=== PATIENT | male | born 1965 | race Caucasian/White ===

== ENCOUNTER 2017-02-13 15:38 | Inpatient (IN) | payer BC ==
--- NOTE | ~2017-02-13 | DS ---
Discharge Summary [facility] [address] [place]. [address] NAME: MARCUS DOMINGUEZ SR. : 67 STATUS : DIS IN PAT#: [id number] AGE: 51 ADM/REG DATE : 02/13/17 MR#: [id number] REPORT SERV DATE: 03/01/17 DICTATED BY: NELSON MIRELES JR. DATE: 03/01/17 REPORT STATUS : Draft TRANSCRIBED BY: FARZANEH DATE: 03/01/17 Data Collection from hospitalization DISCHARGE DIAGNOSES: 1. Pneumothorax. 2. Hypertension. 3. Chronic obstructive pulmonary disease. 4. Tobacco abuse. 5. Gastroesophageal reflux disease. 6. Neuropathy of the left face. CONSULTATIONS: None. PROCEDURES PERFORMED: Bronchoscopy, right thoracoscopy with mechanical pleurodesis (Betadine), intercostal nerve block, 02/14/2017. MEDICATIONS: Tegretol 100 mg twice a day, Neurontin 300 mg three times a day, HydroDIURIL 12.5 mg daily, Cozaar 100 mg daily, Percocet 5/325 one to two tablets every four hours as needed. CONDITION AT DISCHARGE: Stable. DISPOSITION: The patient was discharged home on a regular diet with activities as instructed. He would follow up with me, 03/12/2017. HOSPITAL COURSE: This is a 51-year-old man, who presented to the [facility] with complaints of shortness of breath and chest pain, which started Sunday prior to this admission. He stated that his shortness of breath had worsened and he presented to the emergency room. He has a history of COPD and tobacco use as well as two previous spontaneous pneumothoraces on the right side. One of the pneumothoraces was treated with a chest tube and attempted bedside pleurodesis with failure. On further evaluation in the hospital, he was found to have 80% pneumothorax with atelectasis on the right base. A large bore chest tube was inserted with near-complete re-expansion. A CT scan of the chest had been performed, which showed bilateral diffuse bolus emphysema. We were asked to transfer him to consider surgical pleurodesis. He currently denied any significant breathing problems, but did complain of mild pain and tenderness in the right chest wall. He was admitted to the hospital for further evaluation and treatment. Upon admission, white count was 13.3. Treatment options were discussed and it was elected to proceed with surgical intervention. The following day, his pain was controlled. He was doing well. He was taken to the operating room, where he underwent the above-mentioned procedure. He tolerated this well and there were no complications. On postop day one, he was afebrile. Urine output was adequate. White count was 15.5. Chest tube remained in place. On the , he continued to do well. There had been no acute events overnight. He denied pain other than the chest tube site with movements. He said he had been mobile and had been ambulating and using the incentive spirometer. On 02/17/2017, he had no new complaints. The epidural catheter was removed and the tip was Discharge Summary [address] [address] NAME: MARCUS DOMINGUEZ . : 67 STATUS : DIS IN PAT#: [id number] AGE: 51 ADM/REG DATE : 02/13/17 MR#: [id number] REPORT SERV DATE: 03/01/17 DICTATED BY: NELSON MIRELES JR. DATE: 03/01/17 REPORT STATUS : Draft TRANSCRIBED BY: FARZANEH DATE: 03/01/17 intact. Over the next couple of days, he continued to progress. Discharge planning was performed. On 02/19/2017, his lungs were clear. Chest tube was discontinued. Discharge instructions were given. Due to his improved and stable condition, he was discharged home with the above-stated instructions. Information collected by: Mandie Robison I submit the above information as my discharge summary. BEATRIZ/FARZANEH Nelson Mireles Jr., M.D. / [id number] CC: Sandy Diaz Jr., D.O.
--- NOTE | ~2017-02-13 | OP ---
Record Of Operation [facility] [address] [place]. [address] NAME: MARCUS DOMINGUEZ SR : 67 STATUS : ADM IN [facility]#: [id number] AGE: 51 ADM/REG DATE : 02/13/17 MR#: [id number] REPORT SERV DATE: 02/15/17 DICTATED BY: NELSON MIRELES JR. DATE: 02/14/17 REPORT STATUS : Draft TRANSCRIBED BY: FARZANEH DATE: 02/14/17 DATE OF PROCEDURE: 02/14/2017 PREOPERATIVE DIAGNOSIS: Spontaneous secondary pneumothorax, status post failed previous pleurodesis, severe bullous emphysematous disease, hypertension, persistent tobacco abuse, and gastroesophageal reflux disease. POSTOPERATIVE DIAGNOSIS: Spontaneous secondary pneumothorax, status post failed previous pleurodesis, severe bullous emphysematous disease, hypertension, persistent tobacco abuse, and gastroesophageal reflux disease. NAME OF OPERATION: Bronchoscopy, right thoracoscopy with mechanical pleurodesis(Betadine), intercostal nerve block. SURGEON: Nelson Mireles M.D. DIRECTOR OF NURSES REGISTRY: Aleksandar Titus. RESIDENT SURGEON: Juaquin Mendez MD ANESTHESIA: General endotracheal. FINDINGS: The patient noted to have severe bullous lesions in the upper third of the right upper lobe. There was also other diffuse lesions in more of a homogeneous pattern than appear heterogeneous pattern. Towards the posterior aspect of the lung in the mediastinal hilar region, there were lots of bullous lesions coming off the lower lobe. We insufflated the lung and placed saline in chest cavity and could not identify an active air leak or alveolar pleural fistula. It was felt there was no way to estimate which one of the bullous lesions were causing the problems but to start trying to randomly takeoff bullous lesions I thought was not parekh. Removing the upper portion of the right upper lobe in the lung volume reduction strategy would only increase risk for postoperative problems, and given the diffuse nature of the disease, it was not indicated. Also given his current smoking status. We elected to limit it to just a chemical pleurodesis. No biopsies were taken. On bronchoscopy, there is no endobronchial lesions or contraindications proceeding on with surgery. Mucous secretions were evacuated as expected. DETAILS OF OPERATION: After adequate general anesthesia, the patient was intubated. Bronchoscopy was performed noting no endobronchial lesions or contraindications proceeding on with surgery. A left-sided double-lumen endotracheal tube was then placed. The right lung was medially isolated. The patient was then positioned in the left lateral decubitus position where the existing right chest tube was removed. The chest was prepped and draped in routine sterile fashion. A small incision was made overlying the lower intercostal space. Through a single incision site, the above findings were noted. There were some old clot and fibrinous debris from likely the previous chest tube in the chest pleural space. This was removed. The chest was explored noting no obvious ruptured bleb. There was extensive bullous lesions on all three lobes, but primarily the right upper lobe apical Record Of Operation [facility] [address] [place]. [address] NAME: MARCUS DOMINGUEZ SR : 67 STATUS : ADM IN [facility]#: [id number] AGE: 51 ADM/REG DATE : 02/13/17 MR#: [id number] REPORT SERV DATE: 02/15/17 DICTATED BY: NELSON MIRELES JR. DATE: 02/14/17 REPORT STATUS : Draft TRANSCRIBED BY: FARZANEH DATE: 02/14/17 area. Saline was instilled in the chest cavity with the lung was reinflated noting no obvious air leak. We could not smell any anesthetic gases. There were no bubbles performed. After extensive exploration, it was felt a chemical pleurodesis is indicated. We then placed Betadine in the chest cavity. This was 20 mL of 10% Betadine mixed with 80 mL of normal saline. A 32-Italian chest tube was placed. An intercostal block was performed. The single trocar site was closed with running Vicryl sutures. The skin was closed with running monofilament suture. A Dermabond dressing was applied. The old chest tube incision site from the previous tube thoracostomy was then irrigated and debrided. It was packed with iodoform gauze. It was closed with simple Prolene sutures. Sterile dressing was applied. The procedure was terminated at this point. The patient returned back to recovery room in stable condition. BUFFY/FARZANEH Nelson Mireles Jr., M.D. / [id number] CC: Nelson Mireles Jr., M.D. Froylan Barajas MD
--- NOTE | ~2017-02-13 | HP ---
History And Physical [place] [id number] [facility] [place]. [address] NAME: MARCUS DOMINGUEZ SR : 67 STATUS : ADM IN [facility]#: [id number] AGE: 51 ADM/REG DATE : 02/13/17 MR#: [id number] REPORT SERV DATE: 02/14/17 DICTATED BY: NELSON MIRELES JR. DATE: 02/14/17 REPORT STATUS : Draft TRANSCRIBED BY: MODTheo DATE: 02/14/17 DATE OF ADMISSION: 02/13/2017 REASON FOR ADMISSION: Recurrent right pneumothorax. REFERRING PHYSICIAN: Dr. Tavarez, construction project coordinator in [place]. BRIEF HISTORY: This is a 51-year-old white male who presented to [facility] with complaints of shortness of breath and chest pain, which started this past Sunday. He states his shortness of breath worsened, so he presented to the emergency room. He has a history of COPD and tobacco use as well as two previous spontaneous pneumothoraces on his right side. One of the pneumothoraces was treated with a chest tube and attempted bedside pleurodesis with failure. Upon further evaluation in the hospital, he was noted to have an 80% pneumothorax with atelectasis of the right base. A large bore chest tube was inserted with near complete re-expansion. CT scan of the chest was then performed which showed bilateral diffuse bullous emphysema. We were asked to transfer him to consider surgical pleurodesis. He currently denies any significant breathing problems, but does complain of some mild pain and tenderness on his right chest wall. MEDICAL HISTORY: Hypertension, COPD, tobacco abuse, gastroesophageal reflux disease, two prior spontaneous pneumothoraces on the right with a chest tube placement and failed pleurodesis, and neuropathy of his left face. PAST SURGICAL HISTORY: Includes excision of left oral cancer and left neck dissection. Appendectomy, tonsillectomy. HOME MEDICATIONS: Include carbamazepine 100 mg p.o. twice daily, gabapentin 300 mg p.o. three times daily, hydrochlorothiazide 12.5 mg p.o. daily, losartan 100 mg two tablets daily. ALLERGIES: NONE. SOCIAL HISTORY: The patient smoked one pack per day for approximately 25 years. He denies any alcohol or drug use. He is with children and lives in [place], [place]. He works for [employer]. FAMILY HISTORY: Significant for his mother dying at age 56 of a myocardial infarction. His father secondary to cirrhosis of the liver at age 63. He has multiple siblings, but does not know all their history. One of his sisters does have diabetes as well as a fatty liver. REVIEW OF SYSTEMS: Significant for shortness of breath, chest wall discomfort, left facial pain. Complete 12- point review of systems done, all other systems are negative except for the above-mentioned pertinent positives in the history of present illness. History And Physical [address] [address] NAME: MARCUS DOMINGUEZ SR : 67 STATUS : ADM IN [facility]#: [id number] AGE: 51 ADM/REG DATE : 02/13/17 MR#: [id number] REPORT SERV DATE: 02/14/17 DICTATED BY: NELSON MIRELES JR. DATE: 02/14/17 REPORT STATUS : Draft TRANSCRIBED BY: FARZANEH DATE: 02/14/17 PHYSICAL EXAMINATION: GENERAL: A 51-year-old white male, alert, in no acute distress, appearing his stated age. CONSTITUTIONAL: Afebrile. Blood pressure with systolic in the 130s to 140s, oxygen saturation 95%-96% on 2 L nasal cannula, heart rate in the 80s and normal sinus rhythm, weight 68 kg. HEAD, EARS, EYES, NOSE, AND THROAT: Normocephalic, atraumatic. Pupils equal, round and reactive to light. Ears, nose and throat, no drainage, lesions, or exudates noted. NECK: Supple. No lymphadenopathy, JVD, or bruits. Trachea midline. No obvious goiter. CHEST: With symmetrical bilateral movement. No chest wall deformities noted. There is an indwelling right large bore chest tube. CARDIOVASCULAR: Regular rate and rhythm. S1, S2. No gallop, murmur, or rub. RESPIRATORY: Lungs decreased in the right base, otherwise clear. No use of accessory muscles noted. GASTROINTESTINAL: Abdomen is soft, nontender, nondistended. Positive bowel sounds in all four quadrants. No hepatosplenomegaly noted. There is no abdominal aortic bruits or masses noted. : The patient voids without difficulty, otherwise deferred. MUSCULOSKELETAL: Without obvious kyphosis or scoliosis noted. There is normal range of motion all four extremities. No significant bony abnormalities noted. NEURO: All 12 cranial nerves intact. No focal neurologic deficits noted. The patient is alert and oriented x3. SKIN: Warm and dry. No breakdown or lesions noted. Normal turgor. EXTREMITIES: Without clubbing, cyanosis, or edema. 2+ pulses bilaterally. PSYCH: Normal mood and affect, and pleasant. Answers all questions appropriately. HEMATOLOGIC/LYMPHATIC: Without any obvious petechiae or ecchymosis noted. There is no supraclavicular, cervical, or axillary lymphadenopathy noted. DATA: Labs dated 02/13/2017, sodium 136, potassium 3.9, BUN 9, creatinine 0.68, glucose 90, alkaline phosphatase 45, AST 13, total bilirubin 1. White blood count 13.3, hemoglobin 15.7, hematocrit 46.6, platelet 207. HIV antibody is nonreactive. CT of the chest dated 02/12/2017 showing extensive emphysematous changes bilaterally with multiple bullous lesions. There is a right basilar chest tube that extends to the medial right lung base. There is right lower lobe consolidation with a small residual right pneumothorax noted. PROBLEM LIST: 1. Recurrent right-sided pneumothorax with previous failed pleurodesis attempt. 2. Bullous emphysema. 3. Chronic obstructive pulmonary disease. 4. Hypertension. 5. Gastroesophageal reflux disease. 6. Left facial neuropathy. 7. Ongoing tobacco abuse. IMPRESSION AND PLAN: A 51-year-old white male with severe bilateral bullous emphysema and chronic obstructive pulmonary disease with ongoing tobacco abuse. He has had two previous History And Physical [address] [place]. [address] NAME: MARCUS DOMINGUEZ SR : 67 STATUS : ADM IN [facility]#: [id number] AGE: 51 ADM/REG DATE : 02/13/17 MR#: [id number] REPORT SERV DATE: 02/14/17 DICTATED BY: NELSON MIRELES JR. DATE: 02/14/17 REPORT STATUS : Draft TRANSCRIBED BY: MODL DATE: 02/14/17 right-sided pneumothoraces, one which was treated with chest tube and attempted bedside pleurodesis with failure. He presented to the emergency room again with a third pneumothorax. I think given his significant bullous disease, it is unreasonable to proceed on with thoracoscopy and surgical pleurodesis. We would resect any obvious bullous lesions at the time of surgery. These are diffuse throughout both lungs and certainly could not remove all of them. I discussed with him the rationale for surgery as well as the risk and expected benefits. He is willing to proceed. He is also well aware that there is a 20%-30% chance that this would happen on the other side in the future and require pleurodesis as well. I also discussed with him at length for greater than five minutes tobacco cessation and multiple options available for this. He is currently on nicotine patches. We will also do a genotyping for alpha antitrypsin disorder and if this were to be positive, then do a full serum panel. We will leave him n.p.o. after midnight with plans for surgery tomorrow. DICTATED BY: NEREYDA Whelan/FARZANEH Nelson Mireles Jr., M.D. / [id number] CC: Sandy Diaz Jr., LEE
[~2017-02-13 15:38] MED LIST: ACET500CAP PO
[2017-02-13] MEDS ORDERED: NEUR300 PO (17:12)
[2017-02-13] MEDS ORDERED: TEG200 PO (17:12)
[2017-02-13] MEDS ORDERED: HCTZ12.5 PO (17:12)
[2017-02-13] MEDS ORDERED: COZAAR100 MG PO (17:13)
[2017-02-13 21:07] LABS: ASCORBIC ACID (UR NOT ORDER) NEG (NEG); BILIRUBIN, URINE NEGATIVE (NEG); KETONE, URINE NEGATIVE (NEG); LEUKOCYTE ESTERASE(NOT OR TRACE (NEG); WBC (NOT ORDERED) (RFLEX) 3 (0-5)
[2017-02-14 04:49] LABS: BASOPHILS 0.5 %; BASOPHILS ABSOLUTE 0.05 10/3/uL (0.0-0.16); EOSINOPHILS 2.7 %; EOSINOPHILS ABSOLUTE 0.28 10/3/uL (0.0-0.53); HEMATOCRIT 46.2 % (40.0-51.0); HEMOGLOBIN 16.1 g/dL (13.6-17.8); IMMATURE GRANULOCYTES 0.3 %; IMMATURE GRANULOCYTES ABSOLUTE 0.03 10/3/uL (0.0-0.11); LYMPHOCYTES 17.7 %; LYMPHOCYTES ABSOLUTE 1.83 10/3/uL (0.67-4.30); MEAN CORPUS HGB CONC 34.8 g/dL (32.0-36.0); MEAN CORPUSCULAR HEMOGLOB 32.6 pg (26.0-34.0); MEAN CORPUSCULAR VOLUME 93.5 fL (80-100); MEAN PLATELET VOLUME 9.5 fL (9.2-13.0); MONOCYTES 8.8 %; MONOCYTES ABSOLUTE 0.91 10/3/uL (0.21-1.20); NEUTROPHILS ABSOLUTE 7.26 10/3/uL (2.02-8.40); PLATELET COUNT 213 10/3/uL (150-400); RBC DISTRIBUTION WIDTH 13.1 % (12.0-16.0); RED CELL COUNT 4.94 10/6/uL (4.7-6.1); WHITE BLOOD CELLS 10.4 10/3/uL (4.5-10.5)
[2017-02-14 04:50] LABS: MANUAL DIFF NO %
[2017-02-14 04:55] LABS: PARTIAL THROMBO TIME 30.3 SEC (22.5-37.2); PROTIME (NOT ORD) 13.4 SEC (12.0-14.5)
[2017-02-14 05:06] LABS: ALBUMIN 3.1 G/DL (3.5-5.0); ALKALINE PHOSPHATASE 55 U/L (45-117); BUN (BLOOD UREA NITROGEN) 13 MG/DL (6-23); CALCIUM, SERUM 8.7 MG/DL (8.5-10.4); CHLORIDE, SERUM 104 MMOL/L (96-112); CO2 (CARBON DIOXIDE) 28 MMOL/L (24-34); CREATININE 0.77 MG/DL (0.70-1.30); GFR AFRICAN AMERICAN 123 ML/MIN (>=60); GFR NON AFRICAN AMERICAN 106 ML/MIN (>=60); GLOBULIN 3.2 G/DL (2.5-4.1); GLUCOSE, SERUM 101 MG/DL (60-99); POTASSIUM, SERUM 3.7 MMOL/L (3.5-5.3); SGOT(AST) 17 U/L (5-40); SGPT(ALT) 19 U/L (5-65); SODIUM, SERUM 139 MMOL/L (135-148); TOTAL BILIRUBIN 0.4 MG/DL (0-1.2); TOTAL PROTEIN 6.3 G/DL (6.0-8.5)
[2017-02-15 05:16] LABS: BASOPHILS 0.1 %; BASOPHILS ABSOLUTE 0.01 10/3/uL (0.0-0.16); EOSINOPHILS 0.1 %; EOSINOPHILS ABSOLUTE 0.01 10/3/uL (0.0-0.53); HEMATOCRIT 43.6 % (40.0-51.0); HEMOGLOBIN 15.1 g/dL (13.6-17.8); IMMATURE GRANULOCYTES 0.3 %; IMMATURE GRANULOCYTES ABSOLUTE 0.05 10/3/uL (0.0-0.11); LYMPHOCYTES 7.2 %; LYMPHOCYTES ABSOLUTE 1.12 10/3/uL (0.67-4.30); MEAN CORPUS HGB CONC 34.6 g/dL (32.0-36.0); MEAN CORPUSCULAR HEMOGLOB 32.6 pg (26.0-34.0); MEAN CORPUSCULAR VOLUME 94.2 fL (80-100); MEAN PLATELET VOLUME 9.6 fL (9.2-13.0); MONOCYTES 6.7 %; MONOCYTES ABSOLUTE 1.04 10/3/uL (0.21-1.20); NEUTROPHILS 85.6 %; NEUTROPHILS ABSOLUTE 13.26 10/3/uL (2.02-8.40); PLATELET COUNT 228 10/3/uL (150-400); RBC DISTRIBUTION WIDTH 13.1 % (12.0-16.0); RED CELL COUNT 4.63 10/6/uL (4.7-6.1)
[2017-02-15 05:27] LABS: MANUAL DIFF NO %; WHITE BLOOD CELLS 15.5 10/3/uL (4.5-10.5)
[2017-02-15 05:34] LABS: BUN (BLOOD UREA NITROGEN) 10 MG/DL (6-23); CALCIUM, SERUM 8.4 MG/DL (8.5-10.4); CHLORIDE, SERUM 105 MMOL/L (96-112); CO2 (CARBON DIOXIDE) 27 MMOL/L (24-34); CREATININE 0.78 MG/DL (0.70-1.30); GFR AFRICAN AMERICAN 122 ML/MIN (>=60); GFR NON AFRICAN AMERICAN 105 ML/MIN (>=60); GLUCOSE, SERUM 149 MG/DL (60-99); POTASSIUM, SERUM 4.2 MMOL/L (3.5-5.3); SODIUM, SERUM 139 MMOL/L (135-148)
[2017-02-19] MEDS ORDERED: PCET PO (08:46)
== END 2017-02-19 11:19 | disposition home or self-care (01) | DRG 168 ==
LOC: 5NO 15:38
PROVIDERS: Nurse Practitioner Acute Care; Thoracic Surgery (Cardiothoracic Vascular Surgery)
PROC: 3E0T3BZ Introduction of Anesthetic Agent into Peripheral Nerves and Plexi, Percutaneous Approach (ICD-10-PCS; principal; 2017-02-13)
PROC: 0BJQ4ZZ Inspection of Pleura, Percutaneous Endoscopic Approach (ICD-10-PCS; 2017-02-13)
PROC: 3E0L3GC Introduction of Other Therapeutic Substance into Pleural Cavity, Percutaneous Approach (ICD-10-PCS; 2017-02-13)
DX: J93.83 Other pneumothorax (principal); J44.9 Chronic obstructive pulmonary disease, unspecified; I10 Essential (primary) hypertension; K21.9 Gastro-esophageal reflux disease without esophagitis; Z85.819 Personal history of malignant neoplasm of unspecified site of lip, oral cavity, and pharynx; F17.210 Nicotine dependence, cigarettes, uncomplicated
CPT/HCPCS: 36415; 71020; 80048; 80053; 81001; 82962; 83036; 85025; 85610; 85730; 86850; 86900; 86901; 93005; 94640; A9270-GY; J0692; J2250; J2405; J2710; J2795; J3010